=== PATIENT | female | born 1990 | race Caucasian/White ===

== ENCOUNTER 2020-01-02 12:42 | Emergency (ER) | payer OTHER ==
[2020-01-02] MEDS ORDERED: NORCO 5/325 MG PO ONE (13:36)
[2020-01-02] MEDS ORDERED: ZOVIRAX 200 MG PO ONE (13:36)
[2020-01-02] MEDS ORDERED: DELTASONE 20 MG PO ONE (13:36)
--- NOTE | 2020-01-02 13:43 | ERPHSYRPT ---
- History of Present Illness Time Seen by Provider: 01/02/20 12:47 Source: patient Exam Limitations: no limitations Patient Subjective Stated Complaint: Pt states "I have this odd sensitivity to the left side of my head and face. My hair feels like it is pulling, the wind hit my face and it just hurt so bad. It is only on the left side." Triage Nursing Assessment: Pt presented alert and oriented X 3, skin pwd pt ambulates with an upright steady gait, able to speak in clear full sentences pt in no apparent respiratory distress. Physician History: 29 years old female presented in the ER with 2 to 3 days history of left scalp increased sensation of pain with movements of ears and gradually involved the forehead and now the whole left side of the face. Pain is sharp shooting, aggravated with minimal touch, been blowing exacerbate the pain and also with movements of jaw. No neck pain. No blurry vision, did not notice any rash. No hearing problem. Denies any sick contact. Timing/Duration: day(s) (2) Quality: burning, sharpness Head Pain Location: frontal, temporal, parietal Severity of Pain-Max: severe Severity of Pain-Current: moderate Recent Head Trauma: no recent headache/trauma Associated Symptoms: facial pain, No fever/chills, No numbness in legs/feet, No sinus infection, No sensitive to light, No stiff neck, No trouble walking, No vision changes, No visual disturbance, No weakness Allergies/Adverse Reactions: No Known Drug Allergies Allergy (Verified 01/02/20 13:02) Home Medications: Dextroamphetamine/Amphetamine [Dextroamp-Amphetamin 30 mg Tab] 20 mg PO BID 01/02/20 [History] Fluoxetine HCl 10 mg [Prozac 10 mg] 10 mg PO DAILY 01/02/20 [History] Hx Tetanus, Diphtheria Vaccination/Date Given: Yes Hx Influenza Vaccination/Date Given: Yes Hx Pneumococcal Vaccination/Date Given: No Immunizations Up to Date: Yes Travel Risk - International Travel Have you traveled outside of the country in past 3 weeks: No - Coronavirus Screening Are you exhibiting any of the following symptoms?: No Close contact with a COVID-19 positive Pt in past 14-21 Days: No - Review of Systems Constitutional: No Symptoms Ears, Nose, & Throat: No Symptoms Respiratory: No Symptoms Cardiac: No Symptoms Abdominal/Gastrointestinal: No Symptoms Genitourinary Symptoms: No Symptoms Musculoskeletal: No Symptoms Skin: No Symptoms Neurological: Headache, Parasthesia, Sensory Changes Psychological: No Symptoms Endocrine: No Symptoms Hematologic/Lymphatic: No Symptoms Immunological/Allergic: No Symptoms - Past Medical History Pertinent Past Medical History: Yes Psycho-Social History: Anxiety, Attention Deficit Disorder, Depression - Past Surgical History Past Surgical History: Yes Other Surgical History: leap - Social History Smoking Status: Former smoker Exposure to second hand smoke: Yes Drug Use: none Patient Lives Alone: No - Female History Hx Last Menstrual Period: 12/19/2019 Hx Now: (mirena) - Nursing Vital Signs Nursing Vital Signs: Initial Vital Signs Temperature 98.2 F 01/02/20 12:49 Pulse Rate 114 H 01/02/20 12:49 Respiratory Rate 22 01/02/20 12:49 Blood Pressure 131/97 01/02/20 12:49 O2 Sat by Pulse Oximetry 99 01/02/20 12:49 Pain Scale Pain Intensity 8 - Physical Exam General Appearance: no apparent distress Eye Exam: PERRL/EOMI, eyes nml inspection Ears, Nose, Throat Exam: normal ENT inspection, TMs normal, pharynx normal Neck Exam: normal inspection, non-tender, supple, full range of motion Respiratory Exam: normal breath sounds Cardiovascular Exam: regular rate/rhythm, normal heart sounds Back Exam: normal inspection, normal range of motion Extremity Exam: normal inspection, normal range of motion Mental Status Exam: alert, oriented x 3, cooperative regional cra Exam: normal hearing, normal speech, PERRL, No facial asymmetry Coordination/Gait Exam: normal finger to nose, normal gait, normal cerebellar function, negative Romberg's sign Motor/Sensory Exam: no motor deficit, no pronator drift, negative Babinski's sign DTR Exam: bicep (R): 2+, bicep (L): 2+, knee (R): 2+, knee (L): 2+ Skin Exam: normal color, other (Hypersensitivity to touch in the left face/scalp) SpO2 Interpretation: normal SpO2: 99 O2 Delivery: Room Air Ordered Tests: Active Orders 24 hr Category Date Time Status HEAD WITHOUT CONTRAST [CT] Stat Exams 01/02/20 13:02 Taken Medication Summary Discontinued Medications Generic Name Dose Route Start Last Admin Trade Name Freq PRN Reason Stop Dose Admin Hydrocodone Bitart/Acetaminophen 1 tab 01/02/20 13:36 01/02/20 13:50 [place] 5/325 Mg PO 01/02/20 13:37 1 tab STAT ONE Administration Hydrocodone Bitart/Acetaminophen Confirm 01/02/20 13:46 [place] 5/325 Mg Administered 01/02/20 13:47 Dose 1 tab .ROUTE .STK-MED ONE Acyclovir 800 mg 01/02/20 13:36 01/02/20 13:50 Zovirax 200 Mg PO 01/02/20 13:37 800 mg STAT ONE Administration Prednisone 60 mg 01/02/20 13:36 01/02/20 13:50 Deltasone 20 Mg PO 01/02/20 13:37 60 mg STAT ONE Administration Prednisone Confirm 01/02/20 13:45 Deltasone 20 Mg Administered 01/02/20 13:46 Dose 60 mg .ROUTE .STK-MED ONE - Progress Progress: unchanged Air Movement: good Progress Note: 01/02/20 13:58 Patient has increased sensitivity to light touch on the left face scalp. I did not appreciate any rash. This could be the prodrome for shingles. I have obtained CT head which is negative. No signs of Lacey's palsy so far. I will treat her with Valtrex and steroid and symptomatically for pain. Discussed signs symptoms of worsening needing return to ER which patient seems understanding. Blood Culture(s) Obtained: No Antibiotics given: No Counseled pt/family regarding: diagnosis, need for follow-up, rad results - Departure Departure Disposition: Home Clinical Impression: Paresthesia Condition: Stable Critical Care Time: No Referrals: Provider,Unknown [Primary Care Provider] - TYSON MONTES DE OCA MD [ACTIVE STAFF] - Follow Up with PCP/3 days Instructions: Shingles (DC), Paresthesias (DC) Additional Instructions: Follow-up with primary care physician for reevaluation. Return to ER for any worsening. Prescriptions: Prednisone 20 mg [Deltasone 20 mg] 60 mg PO DAILY 5 Days #15 tablet Hydrocodone/Acetaminophen [[place] 7.5-325 Tablet] 1 each PO Q4-6HPRN PRN 3 Days #12 tablet MDD 4 PRN Reason: Pain Valacyclovir HCl [Valtrex] 1,000 mg PO TID #20 tablet
[2020-01-02] MEDS ORDERED: DELTASONE 20 MG ONE (13:45)
[2020-01-02] MEDS ORDERED: NORCO 5/325 MG ONE (13:46)
[2020-01-02 14:12] VITALS: BP 136/74; PULSE 81; O2SAT 98
--- NOTE | 2020-01-02 20:07 | XRAY ---
Indication: Left head/facial numbness and tingling. Multiple contiguous axial images obtained through the head without contrast. Comparison: None Normal appearing brain parenchyma, ventricles, and bony calvarium. Partially visualized 1 cm right maxillary sinus polyp/retention cyst. Remaining visualized paranasal sinuses and mastoid air cells are clear. Impression: Normal CT head. Incidental right maxillary sinus polyp/retention cyst. Comment: Preliminary interpretation was made by [facility]. No critical discrepancy.
== END 2020-01-02 14:23 | disposition home or self-care (01) ==
LOC: ED 12:42
DX: R20.2 Paresthesia of skin (principal)
CPT/HCPCS: 70450; 99284; A9270-GY